=== PATIENT | female | born 1990 | race Caucasian/White ===

== ENCOUNTER 2017-03-19 16:08 | Emergency (ER) | payer SELFPAY ==
[~2017-03-19] VITALS: Ht 177.8 cm; Wt 63.5 kg
== END 2017-03-19 16:45 | disposition short-term general hospital (02) ==
LOC: ER 16:08
DX: H00.031 Abscess of right upper eyelid (principal)

== ENCOUNTER 2017-03-21 19:42 | Emergency (ER) | payer SELFPAY ==
[~2017-03-21] VITALS: Ht 177.8 cm; Wt 65.8 kg
== END 2017-03-21 20:44 | disposition short-term general hospital (02) ==
LOC: ER 19:42
PROC: 089 Eye, Drainage (ICD-10-PCS; principal; 2017-03-21)
DX: H00.031 Abscess of right upper eyelid (principal); F17.210 Nicotine dependence, cigarettes, uncomplicated